=== PATIENT | male | born 1955 ===

== ENCOUNTER 2019-12-30 15:32 | Outpatient (CLI) | payer OTHER | END 2019-12-30 15:39 | disposition home or self-care (01) | LOC: LAB 15:32 | PROVIDERS: ATTEND Urology | DX: R97.20 Elevated prostate specific antigen [PSA] (principal) ==

== ENCOUNTER 2020-01-23 07:36 | Outpatient (CLI) | payer OTHER | END 2020-01-23 07:40 | disposition home or self-care (01) | LOC: SONOGRAMA 07:36 | PROVIDERS: ATTEND Urology | DX: D29.1 Benign neoplasm of prostate (principal); R97.20 Elevated prostate specific antigen [PSA] ==